=== PATIENT | male | born 1930 | race Caucasian/White ===

== ENCOUNTER → 2018-12-03 09:54 | Outpatient (CLI) | payer MEDICARE, BC ==
[2014-05-17 12:34] VITALS: BMI 34.0
[~2018-12-03 09:54] MED LIST: CAPTOPRIL25 MG PO; DILAUDID4 MG PO; INDERAL10 MG PO; LIPITOR80 MG PO; NORVASC5 MG PO
== END | disposition home or self-care (01) ==
LOC: D.CT 09:54
PROVIDERS: ATTEND Clinical Nurse Specialist Family Health
DX: M25.561 Pain in right knee (principal); W19.XXXA Unspecified fall, initial encounter

== ENCOUNTER 2019-12-25 15:26 | Emergency (ER) | payer MEDICARE, BC ==
[~2019-12-25] VITALS: Ht 167.6 cm; Wt 81.8 kg
[2019-12-25 15:50] VITALS: BP 126/67; Ht 167.6 cm; Wt 81.8 kg
[2019-12-25] MEDS ORDERED: HYDROCODON-ACE1 EAC7 PO (18:25)
== END 2019-12-25 19:00 | disposition home or self-care (01) ==
LOC: D.ER 15:26
DX: S42.009A Fracture of unspecified part of unspecified clavicle, initial encounter for closed fracture (principal); M50.30 Other cervical disc degeneration, unspecified cervical region; M25.511 Pain in right shoulder; W18.30XA Fall on same level, unspecified, initial encounter; Y93.9 Activity, unspecified; Y92.9 Unspecified place or not applicable